=== PATIENT | male | born 1990 | race Caucasian/White ===

== ENCOUNTER 2023-02-22 17:28 | Emergency (ER) | payer OTHER ==
[~2023-02-22] VITALS: Ht 157.5 cm; Wt 127.0 kg
[2023-02-22 17:28] VITALS: BP_SYST 137; PULSE 85; RESP 18; TEMP 98.3; O2SAT 100
--- NOTE | 2023-02-22 17:28 | NUR ---
BROUGHT IN BY ROSAMARIA FOX, PLACED IN HALLWAY AND TRIAGED. REPORT GIVEN TO SYD
--- NOTE | 2023-02-22 17:32 | NUR ---
PATIENT BROUGHT IN FOR MEDICAL CLEARANCE WITH HISTORY OF PALPITATIONS. NO COMPLAINTS AT THIS TIME. PAIN 0/10
--- NOTE | 2023-02-22 18:50 | NUR ---
ER at bedside examining patient.
[2023-02-22] MEDS ORDERED: ACET325T PO (19:20)
[2023-02-22 19:25] VITALS: BP_SYST 126; PULSE 72; RESP 18; TEMP 98.3; O2SAT 100
--- NOTE | 2023-02-22 19:25 | NUR ---
Patient given written and verbal discharge instructions and verbalizes understanding. ER MD discussed with patient the results and treatment provided. Patient in stable condition. ID arm band removed. IV catheter removed intact and dressing applied, no active bleeding. Rx of TYLENOL given. Patient educated on pain management and to follow up with PMD. Pain Scale 0/10 Opportunity for questions provided and answered. Medication side effect fact sheet provided.
== END 2023-02-22 19:25 ==
LOC: SED 17:28
DX: M25.511 Pain in right shoulder (principal); R07.2 Precordial pain; M79.621 Pain in right upper arm; I10 Essential (primary) hypertension; Z79.899 Other long term (current) drug therapy
CPT/HCPCS: 71045; 73030; 93005; 99284